=== PATIENT | female | born 1945 | race Asian ===

== ENCOUNTER 2018-05-30 06:24 | Inpatient (IN) | payer MEDICARE, OTHER ==
[2018-05-30] VITALS (16 sets, daily range): BP systolic 100–157; BP diastolic 54–88
[~2018-05-30] VITALS: Ht 152.4 cm; Wt 49.9 kg
--- NOTE | 2018-05-30 06:38 | Emergency Room Report ---
History of Present Illness General Chief Complaint: Abdominal Pain Source: Patient Present Illness HPI 73-year-old female with a history of high cholesterol and 2 remote C-sections presents with right lower quadrant gradual onset, slowly progressive, constant moderate to severe intensity sharp abdominal pain. She denies radiation of pain , denies fevers, vomiting, urinary symptoms, and has not tried any medications for symptoms. She reports it is worse when she presses on it, otherwise has no other alleviating or exacerbating factors. Allergies: Coded Allergies: No Known Allergies (Unverified , 05/30/18) Patient History Past Medical History: see triage record Last Menstrual Period: 2007 Now: No Reviewed Nursing Documentation: PMH: Agreed; PSxH: Agreed Nursing Documentation-PMH Past Medical History: No History, Except For Hx Cardiac Problems: No - high cholesterol Review of Systems All Other Systems: negative except mentioned in HPI Physical Exam Vital Signs Date Time Temp Pulse Resp B/P (MAP) Pulse Ox O2 Delivery O2 Flow Rate FiO2 05/30/18 06:24 98.2 100 16 157/73 98 Room Air Sp02 EP Interpretation: reviewed, normal General Appearance: no apparent distress, alert, non-toxic Head: normocephalic Eyes: bilateral eye normal inspection, bilateral eye PERRL, bilateral eye EOMI ENT: normal ENT inspection, hearing grossly normal, normal pharynx, no angioedema, normal voice, moist mucus membranes Neck: normal inspection, full range of motion, supple, supple/symm/no masses Respiratory: chest non-tender, lungs clear, normal breath sounds, chest symmetrical, palpation of chest normal Cardiovascular #1: normal peripheral pulses, regular rate, rhythm Cardiovascular #2: 2+ radial (R), 2+ radial (L) Gastrointestinal: normal inspection, soft, no mass, no guarding, no rebound, tenderness - + RLQ tenderness to palpation Rectal: deferred Genitourinary: normal inspection, no CVA tenderness Musculoskeletal: back normal, gait/station normal, normal range of motion, non- tender, no calf tenderness Neurologic: alert, responsive, physician support coordinator III-XII nml as tested, motor strength/tone normal, sensory intact, speech normal Psychiatric: judgement/insight normal, memory normal, mood/affect normal Skin: normal color, no rash, warm/dry, normal turgor Lymphatic: no adenopathy Medical Decision Making Diagnostic Impression: Primary Impression: Abdominal pain ER Course -year-old female presents with signs and symptoms consistent with appendicitis , will obtain basic labs, give IV fluids, Zofran, morphine, obtain CT scan to evaluate, patient made n.p.o. Patient with +appy, given IV zosyn, pre-op ekg, cxr ordered, surgeon Dr. Alves consulted, Dr. Santos to admit to [facility] surgery bed. EKG Diagnostic Results EKG Time: 08:53 EP Interpretation: no stemi Rate: normal Rhythm: NSR ST Segments: no acute changes ASA given to the pt in ED: No Rhythm Strip Diag. Results Rhythm Strip Time: 08:50 EP Interpretation: yes Rate: 75 Rhythm: NSR, no PVC's, no ectopy Chest X-Ray Diagnostic Results Chest X-Ray Diagnostic Results : Chest X-Ray Ordered: Yes # of Views/Limited/Complete: 1 View Indication: Other EP Interpretation: Yes Interpretation: no consolidation, no effusion, no pneumothorax, no acute cardiopulmonary disease - abd pain Impression: No acute disease Electronically Signed by: Emilie Agosto MD CT/MRI/US Diagnostic Results CT/MRI/US Diagnostic Results : Imaging Test Ordered: ct abd/pelvis Impression + Acute appendicitis, with possible microperforation, no abscess, no large- volume perforation Last Vital Signs Date Time Temp Pulse Resp B/P (MAP) Pulse Ox O2 Delivery O2 Flow Rate FiO2 05/30/18 06:24 98.2 100 16 157/73 98 Room Air Disposition: ADMITTED INPATIENT Condition: Stable Scripts No Active Prescriptions or Reported Meds EMILIE AGOSTO M.D May 30, 2018 06:38
[2018-05-30] MEDS ORDERED: Isovue-300 100ml vial INJ PRN (06:45)
[2018-05-30] MEDS ORDERED: Morphine Sulfate 4mg/ml Inj (IV USE ONLY) IVP ONE (06:45)
[2018-05-30 07:20] LABS: ANION GAP 9 mmol/L (5-15); BLOOD UREA NITROGEN 11 mg/dL (7-18); CALCIUM 9.2 MG/DL (8.5-10.1); CARBON DIOXIDE 26 MMOL/L (21-32); CHLORIDE 102 MMOL/L (98-107); CREATININE 0.7 MG/DL (0.55-1.30); HEMATOCRIT 41.2 % (37.0-47.0); HEMOGLOBIN 14.4 G/DL (12.0-16.0); MEAN CORPUSCULAR VOLUME 93 FL (80-99); PLATELET COUNT 274 K/UL (150-450); POTASSIUM 3.7 MMOL/L (3.5-5.1); RED BLOOD COUNT 4.42 M/UL (4.20-5.40); RED CELL DISTRIBUTION WIDTH 11.8 % (11.6-14.8); SODIUM 137 MMOL/L (136-145)
[2018-05-30 07:24] LABS: ALANINE AMINOTRANSFERASE 25 U/L (12-78); ALBUMIN 3.3 G/DL (3.4-5.0); ALBUMIN/GLOBULIN RATIO 0.9 (1.0-2.7); ALKALINE PHOSPHATASE 76 U/L (46-116); ASPARTATE AMINO TRANSFERASE 21 U/L (15-37); BILIRUBIN,TOTAL 0.9 MG/DL (0.2-1.0)
[2018-05-30] MEDS ORDERED: Piperacillin/Tazobactam 3.375 GM in NS 110 ML IVPB ONE (07:30)
[2018-05-30 08:04] LABS: APPEARANCE,URINE SLIGHTLY CLOUDY; BILIRUBIN, URINE NEGATIVE (NEGATIVE); GLUCOSE, URINE (UA) NEGATIVE (NEGATIVE); KETONES,URINE 2+ (NEGATIVE); LEUKOCYTE ESTERASE ,URINE 1+ (NEGATIVE); NITRITE,URINE NEGATIVE (NEGATIVE); PH,URINE 6 (4.5-8.0); PROTEIN,URINE 2+ (NEGATIVE); UROBILINOGEN,URINE 4 MG/DL (0.0-1.0)
[2018-05-30 08:07] LABS: COLOR,URINE YELLOW
--- NOTE | 2018-05-30 08:42 | Diagnostic Imaging Report ---
Clinical Indication: Right lower quadrant abdominal pain, gradually onset, slowly progressive, moderate to severe and sharp Technique: No oral contrast utilized, per emergency room physician request IV administration nonionic contrast. Venous phase spiral acquisition obtained through the abdomen and pelvis. Multiplanar reconstructions were generated. Total dose length product 667.33 mGycm. CTDIvol(s) 13.21 mGy. Dose reduction achieved using automated exposure control Comparison: none Findings: The appendix is enlarged, measuring up to 9 mm in diameter. There is an appendicolith at the appendiceal orifice. There is periappendiceal inflammatory change. On the axial slices, there is questionably a tiny focus of extraluminal gas seen on image 71 of series 3. No discrete organized fluid collections are demonstrated. There is colonic diverticulosis. No evidence of diverticulitis. No small bowel distention. No free or loculated intraperitoneal gas or fluid is evident. There is a small sliding-type hiatal hernia. There is equivocal wall thickening of the gastric antrum. The liver demonstrates borderline decreased attenuation in general, with some focal fatty change in the usual location adjacent to the falciform ligament. The gallbladder, bile ducts, pancreas, spleen, adrenals, kidneys are unremarkable. No retroperitoneal mass or adenopathy. No pelvic mass or adenopathy. There are degenerative changes of the lower lumbar spine. The included lung bases demonstrate posterior dependent atelectatic changes. Impression: Positive for acute appendicitis. Questionable tiny extraluminal gas bubble could indicate microperforation. No evidence of periappendiceal abscess Apparent gastric antral wall thickening, could indicate gastritis or peptic ulcer disease. Correlate with clinical findings Equivocal mild fatty liver. More focal fatty deposition adjacent to the falciform ligament Incidental findings noted, including posterior dependent atelectatic changes, hiatal hernia, degenerative spondylosis Findings discussed by phone with Dr. Ware in the emergency room at the time of interpretation The CT scanner at [facility] is accredited by the [employer] and the scans are performed using protocols designed to limit radiation exposure to as low as reasonably achievable to attain images of sufficient resolution adequate for diagnostic evaluation.
[2018-05-30] MEDS: D5 1/2NS w/KCl 20mEq 1,000 ML IV SCH ×4 (09:45→23:07)
[2018-05-30] MEDS ORDERED: Lidocaine 1% MPF 10mg/ml 5ml ONE (10:25)
[2018-05-30] MEDS ORDERED: Midazolam 2mg/2ml Inj ONE (10:25)
[2018-05-30] MEDS ORDERED: fentaNYL 100 mcg/2 mL IV ONE (10:25)
[2018-05-30] MEDS ORDERED: Bupivacaine 0.25% Inj 30ml INJ ONE (10:25)
[2018-05-30] MEDS ORDERED: Bacitracin 50000 Units Vial ONE (10:25)
[2018-05-30] MEDS ORDERED: Propofol 200mg/20ml IV ONE (10:25)
--- NOTE | 2018-05-30 10:29 | Pre-Procedure Note/Attestation ---
Pre-Procedure Note/Attestation Complete Prior to Procedure Planned Procedure: not applicable Procedure Narrative: exploratory laparoscopy, appendectomy possible open appendectomy Indications for Procedure Pre-Operative Diagnosis: acute appendicitis Attestation I attest that I discussed the nature of the procedure; its benefits; risks and complications; and alternatives (and the risks and benefits of such alternatives ), prior to the procedure, with the patient (or the patient's legal retail field representative). I attest that, if there was a reasonable possibility of needing a blood transfusion, the patient (or the patient's legal retail field representative) was given the [facility] standardized written summary, pursuant to the Xavier Jim Blood Safety Act ([place] Health and Safety Code # 1645, as amended). I attest that I re-evaluated the patient just prior to the surgery and that there has been no change in the patient's H&P, except as documented below: Ana Maria Alves MD May 30, 2018 10:29
[2018-05-30] MEDS ORDERED: NS Irrig 1000ml ONE (10:30)
[2018-05-30] MEDS ORDERED: Sterile Water Irrig 1000ml IRRIG ONE (10:30)
--- NOTE | 2018-05-30 10:30 | Consultation ---
DATE OF CONSULTATION: 05/30/2018 PREOPERATIVE CONSULTATION CONSULTING PHYSICIAN: Ana Maria Alves M.D. REQUESTING PHYSICIAN: ER physician. REASON FOR CONSULTATION: Abdominal pain. HISTORY OF PRESENT ILLNESS: This is a 73-year-old [place] female, who presented to emergency room complaining of abdominal pain for three days. She stated the pain has been located at right lower quadrant and it has gradually increased. She stated that in the beginning she had vomiting, but with taking some medicine the vomiting has resolved. She is usually constipated and she takes laxative. She denies any fever, cough, dysuria, or frequency. She denies any previous history of similar pain. PAST MEDICAL HISTORY: She denies allergies, asthma, diabetes, cardiac and renal diseases. Apparently, she has a history of hypertension. PAST SURGICAL HISTORY: Include x2. MEDICATIONS: Sleeping pill. SOCIAL HISTORY: The patient is a 73-year-old [place] female, who is and mother of two children. She is unemployed. Denies smoking, but drinks occasionally. REVIEW OF SYSTEMS: Noncontributory. PHYSICAL EXAMINATION: GENERAL: The patient appeared to be a well-developed, well-nourished, 73-year-old [place] female, lying on the bed, complaining of abdominal pain. HEENT: Head is normocephalic and atraumatic. Eyes, pupils are equal, round, and reactive to light. Mouth is clear. NECK: There is no palpable thyromegaly or adenopathy. CHEST: Clear to auscultation and percussion. HEART: There is no gallop or murmur. S1 and S2 are within normal limits. ABDOMEN: Soft and flat. She has a scar of the midline incision below the umbilicus. She has tenderness and rebound tenderness. There is voluntary guarding at right lower quadrant. There is no palpable organomegaly and bowel sounds are audible. GENITAL: Deferred. EXTREMITIES: Within normal limits. LABORATORY AND DIAGNOSTIC DATA: CBC has shown a WBC of 15,000 with a left shift. Chemistry is within normal limits. CAT scan of the abdomen has been interpreted as acute appendicitis. ASSESSMENT: Acute appendicitis. PLAN: After rehydration, the patient will undergo exploratory laparoscopy appendectomy, possible open appendectomy. The risks and benefits have been explained to her. She understood and granted consent. Ana Maria Alves M.D. DR: DARI JOB#: [id number] CC:
--- NOTE | 2018-05-30 10:32 | Anethesia Preoperative Eval ---
Anesthesia Pre-op PMH/ROS General Date of Evaluation: May 30, 2018 Time of Evaluation: 10:30 Anesthesiologist: Cami Urbina CRNA ASA Score: ASA 2 Mallampati Score Class I : Soft palate, uvula, fauces, pillars visible Class II: Soft palate, uvula, fauces visible Class III: Soft palate, base of uvula visible Class IV: Only hard plate visible Mallampati Classification: Class II Surgeon: Long Diagnosis: Acute appendicitis Surgical Procedure: Laparoscopic appedectomy Anesthesia History: none Family History: no anesthesia problems Allergies: Coded Allergies: No Known Allergies (Unverified , 05/30/18) Medications: see eMAR Patient NPO?: Yes NPO Date: May 30, 2018 NPO Time: 00:00 Past Medical History Cardiovascular: Reports: HTN, other - Hypercholesterolemia; Denies: CAD, NV, valve dz, arrhythmia Pulmonary: Denies: asthma, COPD, JENN, other Gastrointestinal/Genitourinary: Reports: other - ED 05/30/18 abdominal pain x 2 wks, (+) acute appendicitis; Denies: GERD, CRI, ESRD Neurologic/Psychiatric: Denies: dementia, CVA, depression/anxiety, TIA, other Endocrine: Denies: DM, hypothyroidism, steroids, other HEENT: Denies: cataract (L), cataract (R), glaucoma, ATKA (L), ATKA (R), other Hematology/Immune: Denies: anemia, DVT, bleeding disorder, other PMH Narrative: as noted above PSxH Narrative: c/s x 2 Anesthesia Pre-op Phys. Exam Physician Exam Last Vital Signs Date Time Temp Pulse Resp B/P (MAP) Pulse Ox O2 Delivery O2 Flow Rate FiO2 05/30/18 10:20 Room Air 05/30/18 09:11 98.3 73 16 132/60 97 Constitutional: NAD Neurologic: other - alert & oriented Cardiovascular: RRR Respiratory: CTA Gastrointestinal: S/NT/ND Airway Exam Mallampati Score: Class II MO: full Neck: FROM TMD: > 3 FB ROM: full Teeth: intact Dentures: no upper, no lower Anesthesia Pre-op A/P Labs Hematology Test 05/30/18 06:45 White Blood Count 15.0 K/UL (4.8-10.8) H Red Blood Count 4.42 M/UL (4.20-5.40) Hemoglobin 14.4 G/DL (12.0-16.0) Hematocrit 41.2 % (37.0-47.0) Mean Corpuscular Volume 93 FL (80-99) Mean Corpuscular Hemoglobin 32.5 PG (27.0-31.0) H Mean Corpuscular Hemoglobin Concent 34.9 G/DL (32.0-36.0) Red Cell Distribution Width 11.8 % (11.6-14.8) Platelet Count 274 K/UL (150-450) Mean Platelet Volume 6.2 FL (6.5-10.1) L Neutrophils (%) (Auto) % (45.0-75.0) Lymphocytes (%) (Auto) % (20.0-45.0) Monocytes (%) (Auto) % (1.0-10.0) Eosinophils (%) (Auto) % (0.0-3.0) Basophils (%) (Auto) % (0.0-2.0) Differential Total Cells Counted 100 Neutrophils % (Manual) 85 % (45-75) H Lymphocytes % (Manual) 12 % (20-45) L Monocytes % (Manual) 3 % (1-10) Eosinophils % (Manual) 0 % (0-3) Basophils % (Manual) 0 % (0-2) Band Neutrophils 0 % (0-8) Platelet Estimate Adequate Platelet Morphology Normal Red Blood Cell Morphology Normal Coagulation Test 05/30/18 06:45 Prothrombin Time 10.1 SEC (9.30-11.50) Prothromb Time International Ratio 1.0 (0.9-1.1) Activated Partial Thromboplast Time 30 SEC (23-33) Chemistry Test 05/30/18 06:45 Sodium Level 137 MMOL/L (136-145) Potassium Level 3.7 MMOL/L (3.5-5.1) Chloride Level 102 MMOL/L (98-107) Carbon Dioxide Level 26 MMOL/L (21-32) Anion Gap 9 mmol/L (5-15) Blood Urea Nitrogen 11 mg/dL (7-18) Creatinine 0.7 MG/DL (0.55-1.30) Estimat Glomerular Filtration Rate mL/min (>60) Glucose Level 113 MG/DL (74-106) H Calcium Level 9.2 MG/DL (8.5-10.1) Total Bilirubin 0.9 MG/DL (0.2-1.0) Aspartate Amino Transf (AST/SGOT) 21 U/L (15-37) Alanine Aminotransferase (ALT/SGPT) 25 U/L (12-78) Alkaline Phosphatase 76 U/L (46-116) Total Protein 7.1 G/DL (6.4-8.2) Albumin 3.3 G/DL (3.4-5.0) L Globulin 3.8 g/dL Albumin/Globulin Ratio 0.9 (1.0-2.7) L Lipase 125 U/L (73-393) Studies Pre-op Studies: EKG - NSR Risk Assessment & Plan Assessment: ASA 2, ok to proceed Plan: GETA Status Change Before Surgery: No Pre-Antibiotics Drug: Cami Moran CRNA May 30, 2018 10:32
[2018-05-30] MEDS ORDERED: NS Irrig 1000ml IRRIG ONE (10:39)
[2018-05-30] MEDS ORDERED: Ketorolac 30mg Inj ONE (11:08)
[2018-05-30] MEDS ORDERED: Morphine Sulfate 10mg/ml Inj ONE (11:08)
[2018-05-30] MEDS ORDERED: Metoclopramide 10mg/2ml Inj ONE (11:08)
--- NOTE | 2018-05-30 11:24 | Diagnostic Imaging Report ---
Indication: Shortness of breath Technique: One view of the chest Comparison: none Findings: The heart size is normal. The lungs and pleural spaces are clear. The aorta is tortuous and calcified. Impression: No acute process
[2018-05-30] MEDS ORDERED: Hydromorphone 0.5mg/0.5ml inj IVP PRN ×2 (11:30→12:00)
[2018-05-30] MEDS ORDERED: D5 1/2NS w/KCl 20mEq 1,000 ML IV SCH (11:55)
--- NOTE | 2018-05-30 11:55 | Brief Operative Note ---
Immediate Post Operative Note Operative Note Pre-op Diagnosis: acute appendicitis Procedure: Attempted lap appy, lysis of adhesions and open appedectomy Post-op Diagnosis: same as pre-op Findings: consistent w/pre-op dx studies Surgeon: MD Annette Adult Probation Officer: none Anesthesiologist: ramon Stewart CRNA Anesthesia: general Specimen: yes Complications: none Condition: stable Fluids: per molded rubber goods cutter Estimated Blood Loss: volume - 10 ml Drains: none Implant(s) used?: No Ana Maria Alves MD May 30, 2018 11:55
[2018-05-30] MEDS ORDERED: HYDROmorphone 1mg/ml Carpuject IVP PRN (12:00)
[2018-05-30] MEDS ORDERED: Acetaminophen 650 MG SUPP RECTAL PRN (12:00)
[2018-05-30] MEDS ORDERED: Metoclopramide 10mg/2ml Inj IVP PRN (12:00)
[2018-05-30] MEDS ORDERED: Morphine Sulfate 4mg/ml Inj (IV USE ONLY) IVP PRN (12:15)
[2018-05-30] MEDS ORDERED: Morphine Sulfate 2mg/ml Inj(IV/IM USE ONLY) IVP PRN (12:15)
--- NOTE | 2018-05-30 12:22 | Immediate Post-Op Evaluation ---
Immediate Post-Op Evalulation Immediate Post-Op Evalulation Procedure: Attempted laparoscopic appendectomy converted to appendectomy Date of Evaluation: May 30, 2018 Time of Evaluation: 12:07 IV Fluids: LR 800 ml Estimated Blood Loss: 30 ml Blood Pressure Systolic: 133 Blood Pressure Diastolic: 59 Pulse Rate: 80 Respiratory Rate: 10 O2 Sat by Pulse Oximetry: 100 Temperature (Fahrenheit): 98.1 Pain Score (1-10): 0 Nausea: No Vomiting: No Complications none Patient Status: reacts, patent, extubated Hydration Status: adequate Drug: Cefazolin 1 gm IV Given Within 1 Hr of Incision: Yes Time Given: 10:55 Cami Urbina CRNA May 30, 2018 12:22
[2018-05-30] MEDS ORDERED: Glycopyrrolate 0.2mg/ml 1ml Vial ONE (12:32)
[2018-05-30] MEDS ORDERED: Neostigmine 1mg/ml 10ml Inj ONE (12:32)
[2018-05-30] MEDS: Piperacillin/Tazobactam 3.375 GM in NS 110 ML IVPB SCH ×2 (13:57→21:41)
[2018-05-30] MEDS: Pantoprazole Inj IVP SCH (13:57)
[2018-05-30] MEDS ORDERED: Piperacillin/Tazobactam 3.375 GM in NS 110 ML IVPB SCH (14:00)
--- NOTE | 2018-05-30 15:05 | Consultation ---
Consult Note Assessment/Plan DICT # [id number] Eben Satnos MD May 30, 2018 15:05
--- NOTE | 2018-05-30 15:21 | History & Physical ---
History and Physical History & Physicial HP dictated # [id number] Manuel Gallagher MD May 30, 2018 15:21
--- NOTE | 2018-05-30 19:15 | Consultation ---
DATE OF CONSULTATION: 05/30/2018 PULMONARY CONSULTATION CONSULTING PHYSICIAN: Eben Santos M.D. REFERRING PHYSICIAN: Manuel Gallagher M.D. REASON FOR CONSULTATION: Postoperative hypoxemia. HISTORY OF PRESENT ILLNESS: The patient is a 73-year-old female with history of hyperlipidemia, who presented with right lower quadrant pain secondary to appendicitis. She is now status post laparoscopic appendectomy by Dr. Alves. Postoperatively, she was hypoxemic. She is still lethargic and coming out of anesthesia. No cough or congestion noted. Per , no antecedent history of lung disease, asthma, or tobacco use. PAST MEDICAL HISTORY: Hyperlipidemia. PAST SURGICAL HISTORY: x2 and now appendectomy. ALLERGIES: No known drug allergies. MEDICATIONS: Prior to admission, medications none. Current medications noted. SOCIAL HISTORY: No tobacco, alcohol, or drug use. . Supportive family. FAMILY HISTORY: Noncontributory. REVIEW OF SYSTEMS: Unobtainable. PHYSICAL EXAMINATION: VITAL SIGNS: Temperature 98, pulse 84, blood pressure 130/60, respiratory rate 17, saturating well 3 liters. GENERAL: Lethargic, barely arousable. HEENT: Normocephalic and atraumatic. Oropharynx is clear with moist mucous membranes. NECK: Supple without lymphadenopathy. CHEST: Clear. HEART: Regular. ABDOMEN: Wounds are dressed. No bowel sounds are appreciated. Mild diffuse tenderness. EXTREMITIES: No cyanosis, clubbing or edema. ANCILLARY DATA: White count 15, hemoglobin 14.4, and platelet count 274. INR 1. Sodium 137, potassium 3.7, chloride 102, bicarbonate 26, BUN 11, creatinine 0.7, glucose 113, calcium 9.2. Total bilirubin 0.9, AST 21, ALT 25, alkaline phosphatase 76, total bilirubin 7.1, albumin 3.3, globulin 3.8. Urinalysis, 2+ protein, 2+ ketones, 4+ urobilinogen, 1+ leukocyte esterase, and moderate mucus. IMAGING: Preoperative chest x-ray was essentially within normal limits. CT of the abdomen and pelvis done, chest cuts reviewed by myself. There is evidence of acute appendicitis, questionable tiny extraluminal gas bubble, concern for microperforation, no periappendiceal abscess , gastric antral wall thickening, mild fatty liver, some posterior atelectasis, hiatal hernia, degenerative changes. ASSESSMENT: The patient is a 73-year-old female, nonsmoker with no history of lung disease, presenting with acute appendicitis, now postop day 0, status post acute appendicitis with mild hypoxemia. I suspect the etiology of her hypoxemia secondary to atelectasis and resolving anesthesia with subsequent hypoventilation. PROBLEM LIST: 1. Mild postoperative hypoxemia. 2. Acute appendicitis status post laparoscopic appendectomy for 05/30/2018. 3. Hyperlipidemia. TREATMENT PLAN: 1. ABG. 2. Titrate down FiO2 to keep saturations greater than 92%. 3. Incentive spirometer. 4. Monitor for signs of respiratory infection. 5. Continue antibiotics. 6. The patient is on Lovenox for DVT prophylaxis. 7. Await for the patient to come out completely from anesthesia before advancing diet. 8. Case discussed with at bedside. Dr. Gallagher, thank you for allowing me to assist in the care of your patient. Eben Santos M.D. DR: Araceli JOB#: [id number] CC:
--- NOTE | 2018-05-30 20:00 | Operative Note - Dictated ---
DATE OF OPERATION: 05/30/2018 PREOPERATIVE DIAGNOSIS: Acute appendicitis. POSTOPERATIVE DIAGNOSIS: Acute appendicitis. OPERATION: 1. Attempted laparoscopic appendectomy. 2. Lysis of the adhesion. 3. Open appendectomy. COMPLICATIONS: None. SURGEON: Ana Maria Alves M.D. DIGITAL CONTENT SPECIALIST: None. ANESTHESIA: General with endotracheal tube. CAR RENTAL AGENCY MANAGER: Cami Urbina CRNA. INDICATION: This is a 73-year-old ori[place] female, who presented to emergency room complaining of abdominal pain for 4 days. She stated the pain was located at the right lower quadrant and initially it was associated with nausea and vomiting. She has been constipated. She denied any fever or chills. She denied any cough or dysuria. Physical examination showed severe tenderness, rebound tenderness, and voluntary guarding throughout the lower quadrant. CBC showed a WBC of 15,000 with a left shift. CAT scan of the abdomen was interpreted as acute appendicitis. DESCRIPTION OF PROCEDURE: The patient was placed supine on the operating table and after general anesthesia with the endotracheal tube, the abdomen was properly prepped and draped. Initially, a small incision was given above the umbilicus through which a Veress needle was introduced into the intraperitoneal cavity. This cavity was insufflated up to 15 mmHg and then the Veress needle was removed and a 5 mm trocar was placed in the intraperitoneal cavity through the incision above the umbilicus. The laparoscope and camera were introduced into the intraperitoneal cavity. It was noticed that the patient had very extensive adhesions of the omentum at the lower abdomen. It should be noted that the patient has had 2 C-sections before and she had the scar of the midline incision below the umbilicus. We managed to place the 5 mm trocar at the suprapubic area and a 12 mm trocar at the left lower quadrant, but with the presence of adhesions. The maneuvering of the adhesions was very difficult, so initially the adhesion of the omentum to the anterior abdominal wall was released with the help of the Bovie and access was obtained to the right lower quadrant. The cecum was identified. Exploration was performed, which showed severe inflammation in the area. Mild blunt dissection was performed and tubular structure was identified, which seemed like an appendix. This structure did not have any mesoappendix and it was only the tubular structure. Anyway, this structure was ligated and dissected with the help of the REYES stapler. It was removed from the intraperitoneal cavity. It was notified to be very short and I was not sure if that was really the appendix, so further exploration was performed. I have noticed a large area of induration and inflammation below and lateral to the cecum. This area was dissected, but we were unable to identify any structures as I was not sure about the anatomy, a decision was made to perform an open appendectomy. So, the trocars were removed and a transverse right lower quadrant incision was given and was carried sharply through the subcutaneous tissue and the Gm fascia. The aponeurosis of the external oblique was opened among the fibers and the muscles were streaked. The peritoneum was incised. The intraperitoneal cavity was entered. The cecum was identified and the cecum was likely dissected and was delivered in the wound. Exploration was performed. It showed that the structure that we have removed as an appendix was actually the appendix and there was a stump left, which was smaller than 1 cm or less, and so this one was transligated with 0 Vicryl and the stump was resected and removed. Further exploration was performed and the inflamed tissue was identified on the lateral to the cecum. That is below the cecum. This was gradually dissected and finally removed. I was unable to find any other structure like appendix, so the area was irrigated with antibiotic solution and then the incision was approximated with running suture of #0 Vicryl for peritoneum and posterior fascia. A few interrupted sutures of 0 Vicryl for the muscle and then the aponeurosis of the external oblique was approximated with a running suture of 0 Vicryl. The skin incisions were approximated with skin eduar. The incisions were infiltrated with total of 10 mL of Marcaine 0.25%. The patient tolerated the procedure very well and was transferred to recovery in stable condition and extubated. The sponge and needle counts correct. Estimated blood loss 10 mL. Condition of the patient at the end of procedure is stable. Ana Maria Alves M.D. DR: OSCAR JOB#: [id number] CC:
--- NOTE | 2018-05-30 20:15 | History and Physical Report ---
DATE OF ADMISSION: 05/30/2018 CHIEF COMPLAINT: Abdominal pain. HISTORY OF PRESENT ILLNESS: This is a 73-year-old Persian female, who got recently a flu for the past couple of weeks. Yesterday, she started having right lower quadrant pain, which was increasing with initial vomiting. The patient also had no appetite. The patient was evaluated in the emergency room and was diagnosed with acute appendicitis. She was taken to surgery by Dr. Alves today and she just came back from surgery. The patient was also somewhat hypoxic and the nurse was telling me she was on 5 L O2 and her O2 saturation was low 90s. The patient did not have any previous history of lung disease. PAST MEDICAL HISTORY: Reports history of hypertension. No history of diabetes, cardiac or renal disease. The patient had C-sections x2. ALLERGIES: No known drug allergies. REVIEW OF SYSTEMS: Noncontributory. PHYSICAL EXAMINATION: GENERAL: The patient is an elderly female, in no acute distress. VITAL SIGNS: Blood pressure is 130/60, pulse 84, temperature 98, respiratory rate 17. HEENT: [place] conjunctivae. Anicteric sclerae. NECK: Supple. LUNGS: Clear to auscultation. HEART: S1, S2 without murmurs or rubs. ABDOMEN: Soft. Appears to be nontender with some surgical strips over the holes. EXTREMITIES: No cyanosis or edema. LABORATORY FINDINGS: The CBC shows a WBC of 15,000 hematocrit 41.2, hemoglobin is 14.4, platelets 274,000. The chemistry panel shows serum sodium of 137, potassium 3.7, chloride is 102, CO2 26, BUN 7, creatinine 0.7. Albumin is 3.3. UA is positive for 2+ protein. ASSESSMENT: This is a 73-year-old Persian female who was admitted with abdominal pain, attacks of acute appendicitis. She is somewhat hypoxic at this point, which may be postop atelectasis. PLAN: The patient will be monitored. She will be on pain medications p.r.n. She was seen by Dr. Santos in pulmonary consultation. Case was discussed with RN. Adjustments will be made in the patient's regimen. Manuel Gallagher M.D. DR: CARLOS JOB#: [id number] CC:
[2018-05-31] VITALS: BP 109/52
[2018-05-31 04:00] VITALS: BP 117/58
[2018-05-31] MEDS: D5 1/2NS w/KCl 20mEq 1,000 ML IV SCH ×4 (05:36→18:34)
[2018-05-31] MEDS: Piperacillin/Tazobactam 3.375 GM in NS 110 ML IVPB SCH ×3 (05:38→22:26)
[2018-05-31 06:59] LABS: BASOPHILS % (AUTO) 0.6 % (0.0-2.0); EOSINOPHILS % (AUTO) 0.1 % (0.0-3.0); HEMATOCRIT 35.6 % (37.0-47.0); HEMOGLOBIN 12.1 G/DL (12.0-16.0); LYMPHOCYTES % (AUTO) 9.4 % (20.0-45.0); MEAN CORPUSCULAR VOLUME 95 FL (80-99); MONOCYTES % (AUTO) 5.7 % (1.0-10.0); NEUTROPHILS % (AUTO) 84.2 % (45.0-75.0); PLATELET COUNT 226 K/UL (150-450); RED BLOOD COUNT 3.73 M/UL (4.20-5.40); RED CELL DISTRIBUTION WIDTH 11.9 % (11.6-14.8); WHITE BLOOD COUNT 10.4 K/UL (4.8-10.8)
[2018-05-31 07:04] LABS: ALANINE AMINOTRANSFERASE 18 U/L (12-78); ALBUMIN 2.5 G/DL (3.4-5.0); ALBUMIN/GLOBULIN RATIO 0.7 (1.0-2.7); ALKALINE PHOSPHATASE 65 U/L (46-116); ANION GAP 9 mmol/L (5-15); ASPARTATE AMINO TRANSFERASE 13 U/L (15-37); BILIRUBIN,TOTAL 0.9 MG/DL (0.2-1.0); BLOOD UREA NITROGEN 13 mg/dL (7-18); CALCIUM 8.4 MG/DL (8.5-10.1); CARBON DIOXIDE 25 MMOL/L (21-32); CHLORIDE 104 MMOL/L (98-107); CHOLESTEROL 112 MG/DL (< 200); CREATININE 0.7 MG/DL (0.55-1.30); HDL CHOLESTEROL 49 MG/DL (40-60); POTASSIUM 3.7 MMOL/L (3.5-5.1); SODIUM 138 MMOL/L (136-145); TRIGLYCERIDES 73 MG/DL (30-150)
[2018-05-31 08:00] VITALS: BP 107/52
[2018-05-31] MEDS: Pantoprazole Inj IVP SCH (08:30)
[2018-05-31] MEDS: Enoxaparin 40mg Inj SUBQ SCH (08:39)
[2018-05-31] MEDS ORDERED: Tubing IV Secondary IV ONE (09:59)
--- NOTE | 2018-05-31 11:49 | General Surgery Progress Note ---
General Surgery-Progress Note Subjective Procedure Performed Attempted lap appy, lysis of adhesions and open appedectomy Objective Last 24 Hour Vital Signs Date Time Temp Pulse Resp B/P (MAP) Pulse Ox O2 Delivery O2 Flow Rate FiO2 05/31/18 09:01 98.3 05/31/18 09:00 Nasal Cannula 2.0 05/31/18 08:05 Nasal Cannula 2.0 28 05/31/18 08:05 94 Nasal Cannula 2.0 28 05/31/18 08:00 100.8 86 18 107/52 (70) 94 05/31/18 04:00 99.3 88 17 117/58 (77) 93 05/31/18 00:00 99.2 82 18 109/52 (71) 95 05/30/18 21:00 Nasal Cannula 2.0 05/30/18 20:00 99.7 84 17 118/60 (79) 96 05/30/18 16:00 98.0 76 18 126/76 (93) 98 05/30/18 15:00 98.1 75 18 100/55 (70) 96 05/30/18 14:50 Nasal Cannula 3.0 32 05/30/18 14:50 97 Nasal Cannula 3.0 32 05/30/18 14:30 98.0 80 19 106/54 (71) 95 05/30/18 14:00 97.9 84 19 111/55 (73) 93 05/30/18 13:30 97.9 81 18 107/55 (72) 90 05/30/18 13:15 98.0 84 17 130/60 99 Nasal Cannula 2.0 05/30/18 13:00 86 19 130/67 100 Nasal Cannula 2.0 05/30/18 12:45 88 18 130/66 99 Nasal Cannula 2.0 05/30/18 12:30 90 17 130/64 100 Simple Mask 6.0 05/30/18 12:22 80 10 100 05/30/18 12:17 88 16 130/58 100 Simple Mask 6.0 05/30/18 12:12 81 14 129/61 100 Simple Mask 6.0 05/30/18 12:07 98.1 80 10 133/59 100 Simple Mask 6.0 I&O Intake and Output 05/30/18 05/31/18 18:59 06:59 Intake Total 2620.0 ml 937.5 ml Balance 2620.0 ml 937.5 ml Intake IV Total 2620.0 ml 937.5 ml # Voids 1 3 Dressing: dry Respiratory: clear Abdomen: soft, flat, tenderness, decreased bowel sounds Extremities: no tenderness Laboratory Tests Test 05/31/18 04:40 White Blood Count 10.4 K/UL (4.8-10.8) Red Blood Count 3.73 M/UL (4.20-5.40) L Hemoglobin 12.1 G/DL (12.0-16.0) Hematocrit 35.6 % (37.0-47.0) L Mean Corpuscular Volume 95 FL (80-99) Mean Corpuscular Hemoglobin 32.4 PG (27.0-31.0) H Mean Corpuscular Hemoglobin Concent 34.0 G/DL (32.0-36.0) Red Cell Distribution Width 11.9 % (11.6-14.8) Platelet Count 226 K/UL (150-450) Mean Platelet Volume 6.0 FL (6.5-10.1) L Neutrophils (%) (Auto) 84.2 % (45.0-75.0) H Lymphocytes (%) (Auto) 9.4 % (20.0-45.0) L Monocytes (%) (Auto) 5.7 % (1.0-10.0) Eosinophils (%) (Auto) 0.1 % (0.0-3.0) Basophils (%) (Auto) 0.6 % (0.0-2.0) Sodium Level 138 MMOL/L (136-145) Potassium Level 3.7 MMOL/L (3.5-5.1) Chloride Level 104 MMOL/L (98-107) Carbon Dioxide Level 25 MMOL/L (21-32) Anion Gap 9 mmol/L (5-15) Blood Urea Nitrogen 13 mg/dL (7-18) Creatinine 0.7 MG/DL (0.55-1.30) Estimat Glomerular Filtration Rate mL/min (>60) Glucose Level 147 MG/DL (74-106) H Hemoglobin A1c 5.9 % (4.3-6.0) Calcium Level 8.4 MG/DL (8.5-10.1) L Total Bilirubin 0.9 MG/DL (0.2-1.0) Aspartate Amino Transf (AST/SGOT) 13 U/L (15-37) L Alanine Aminotransferase (ALT/SGPT) 18 U/L (12-78) Alkaline Phosphatase 65 U/L (46-116) Total Protein 5.9 G/DL (6.4-8.2) L Albumin 2.5 G/DL (3.4-5.0) L Globulin 3.4 g/dL Albumin/Globulin Ratio 0.7 (1.0-2.7) L Triglycerides Level 73 MG/DL (30-150) Cholesterol Level 112 MG/DL (< 200) LDL Cholesterol 49 mg/dL (<100) HDL Cholesterol 49 MG/DL (40-60) Cholesterol/HDL Ratio 2.3 (3.3-4.4) L Assessment Additional Comments S/P open appy Plan Additional Comments Continue as before Ana Maria Alves MD May 31, 2018 11:49
[2018-05-31 12:00] VITALS: BP 116/52
[2018-05-31 15:56] VITALS: BP 116/56
--- NOTE | 2018-05-31 16:10 | General Progress Note ---
Assessment/Plan Problem List: (1) Acute appendicitis Assessment & Plan: Status post appendectomy ICD Codes: K35.80 - Unspecified acute appendicitis SNOMED: 79732982 (2) Abdominal pain ICD Codes: R10.9 - Unspecified abdominal pain SNOMED: 32661871 Assessment/Plan Continue IV fluid PRN pain medications IV antibiotics Advance diet per surgery Discussed with patient and RN Subjective Allergies: Coded Allergies: No Known Allergies (Unverified , 05/30/18) Subjective Patient feels better No abdominal pain Objective Last 24 Hour Vital Signs Date Time Temp Pulse Resp B/P (MAP) Pulse Ox O2 Delivery O2 Flow Rate FiO2 05/31/18 15:56 98.4 78 18 116/56 (76) 95 05/31/18 12:00 98.3 74 18 116/52 (73) 94 05/31/18 09:01 98.3 05/31/18 09:00 Nasal Cannula 2.0 05/31/18 08:05 Nasal Cannula 2.0 28 05/31/18 08:05 94 Nasal Cannula 2.0 28 05/31/18 08:00 100.8 86 18 107/52 (70) 94 05/31/18 04:00 99.3 88 17 117/58 (77) 93 05/31/18 00:00 99.2 82 18 109/52 (71) 95 05/30/18 21:00 Nasal Cannula 2.0 05/30/18 20:00 99.7 84 17 118/60 (79) 96 Intake and Output 05/30/18 05/31/18 18:59 06:59 Intake Total 2620.0 ml 937.5 ml Balance 2620.0 ml 937.5 ml Intake IV Total 2620.0 ml 937.5 ml # Voids 1 3 Laboratory Tests 05/31/18 04:40: White Blood Count 10.4, Red Blood Count 3.73L, Hemoglobin 12.1, Hematocrit 35.6L , Mean Corpuscular Volume 95, Mean Corpuscular Hemoglobin 32.4H, Mean Corpuscular Hemoglobin Concent 34.0, Red Cell Distribution Width 11.9, Platelet Count 226, Mean Platelet Volume 6.0L, Neutrophils (%) (Auto) 84.2H, Lymphocytes (%) (Auto) 9.4L, Monocytes (%) (Auto) 5.7, Eosinophils (%) (Auto) 0.1, Basophils (%) (Auto) 0.6, Sodium Level 138, Potassium Level 3.7, Chloride Level 104, Carbon Dioxide Level 25, Anion Gap 9, Blood Urea Nitrogen 13, Creatinine 0.7, Estimat Glomerular Filtration Rate , Glucose Level 147H, Hemoglobin A1c 5.9 , Calcium Level 8.4L, Total Bilirubin 0.9, Aspartate Amino Transf (AST/SGOT) 13L , Alanine Aminotransferase (ALT/SGPT) 18, Alkaline Phosphatase 65, Total Protein 5.9L, Albumin 2.5L, Globulin 3.4, Albumin/Globulin Ratio 0.7L, Triglycerides Level 73, Cholesterol Level 112, LDL Cholesterol 49, HDL Cholesterol 49, Cholesterol/HDL Ratio 2.3L Height (Feet): 5 Height (Inches): 0.00 Weight (Pounds): 110 Cardiovascular: normal rate Respiratory/Chest: lungs clear Abdomen: soft Manuel Gallagher MD May 31, 2018 16:10
--- NOTE | 2018-05-31 16:46 | Pulmonology Progress Note ---
Assessment/Plan Assessment/Plan Pulmonary Progress Note: HISTORY OF PRESENT ILLNESS: The patient is a 73-year-old female with history of hyperlipidemia, who presented with right lower quadrant pain secondary to appendicitis. She is now status post laparoscopic appendectomy by Dr. Alves. Postoperatively, she was hypoxemic. She is still lethargic and coming out of anesthesia. No cough or congestion noted. Per , no antecedent history of lung disease, asthma, or tobacco use. PAST MEDICAL HISTORY: Hyperlipidemia. PAST SURGICAL HISTORY: x2 and now appendectomy. ALLERGIES: No known drug allergies. MEDICATIONS: Prior to admission, medications none. Current medications noted. SOCIAL HISTORY: No tobacco, alcohol, or drug use. . Supportive family. FAMILY HISTORY: Noncontributory. REVIEW OF SYSTEMS: Unobtainable. PHYSICAL EXAMINATION: VITAL SIGNS NOTED GENERAL: Awake HEENT: Normocephalic and atraumatic. Oropharynx is clear with moist mucous membranes. NECK: Supple without lymphadenopathy. CHEST: Clear. HEART: Regular. ABDOMEN: Wounds are dressed. No bowel sounds are appreciated. Mild diffuse tenderness. EXTREMITIES: No cyanosis, clubbing or edema. ANCILLARY DATA: White count 15, hemoglobin 14.4, and platelet count 274. INR 1. Sodium 137, potassium 3.7, chloride 102, bicarbonate 26, BUN 11, creatinine 0.7, glucose 113, calcium 9.2. Total bilirubin 0.9, AST 21, ALT 25, alkaline phosphatase 76, total bilirubin 7.1, albumin 3.3, globulin 3.8. Urinalysis, 2+ protein, 2+ ketones, 4+ urobilinogen, 1+ leukocyte esterase, and moderate mucus. IMAGING: Preoperative chest x-ray was essentially within normal limits. CT of the abdomen and pelvis done, chest cuts reviewed by myself. There is evidence of acute appendicitis, questionable tiny extraluminal gas bubble, concern for microperforation, no periappendiceal abscess , gastric antral wall thickening, mild fatty liver, some posterior atelectasis, hiatal hernia, degenerative changes. ASSESSMENT: The patient is a 73-year-old female, nonsmoker with no history of lung disease, presenting with acute appendicitis, now postop day 0, status post acute appendicitis with mild hypoxemia. I suspect the etiology of her hypoxemia secondary to atelectasis and resolving anesthesia with subsequent hypoventilation. PROBLEM LIST: 1. Mild postoperative hypoxemia. 2. Acute appendicitis status post laparoscopic appendectomy for 05/30/2018. 3. Hyperlipidemia. TREATMENT PLAN: 1. Titrate down FiO2 to keep saturations greater than 92%. 2. Incentive spirometer. 3. Monitor for signs of respiratory infection. 4. Continue antibiotics. 5. The patient is on Lovenox for DVT prophylaxis. 6. Advance diet as tolerated Subjective ROS Limited/Unobtainable: No Allergies: Coded Allergies: No Known Allergies (Unverified , 05/30/18) Objective Last 24 Hour Vital Signs Date Time Temp Pulse Resp B/P (MAP) Pulse Ox O2 Delivery O2 Flow Rate FiO2 05/31/18 15:56 98.4 78 18 116/56 (76) 95 05/31/18 12:00 98.3 74 18 116/52 (73) 94 05/31/18 09:01 98.3 05/31/18 09:00 Nasal Cannula 2.0 05/31/18 08:05 Nasal Cannula 2.0 28 05/31/18 08:05 94 Nasal Cannula 2.0 28 05/31/18 08:00 100.8 86 18 107/52 (70) 94 05/31/18 04:00 99.3 88 17 117/58 (77) 93 05/31/18 00:00 99.2 82 18 109/52 (71) 95 05/30/18 21:00 Nasal Cannula 2.0 05/30/18 20:00 99.7 84 17 118/60 (79) 96 Intake and Output 05/30/18 05/31/18 18:59 06:59 Intake Total 2620.0 ml 937.5 ml Balance 2620.0 ml 937.5 ml Intake IV Total 2620.0 ml 937.5 ml # Voids 1 3 Laboratory Tests 05/31/18 04:40: White Blood Count 10.4, Red Blood Count 3.73L, Hemoglobin 12.1, Hematocrit 35.6L , Mean Corpuscular Volume 95, Mean Corpuscular Hemoglobin 32.4H, Mean Corpuscular Hemoglobin Concent 34.0, Red Cell Distribution Width 11.9, Platelet Count 226, Mean Platelet Volume 6.0L, Neutrophils (%) (Auto) 84.2H, Lymphocytes (%) (Auto) 9.4L, Monocytes (%) (Auto) 5.7, Eosinophils (%) (Auto) 0.1, Basophils (%) (Auto) 0.6, Sodium Level 138, Potassium Level 3.7, Chloride Level 104, Carbon Dioxide Level 25, Anion Gap 9, Blood Urea Nitrogen 13, Creatinine 0.7, Estimat Glomerular Filtration Rate , Glucose Level 147H, Hemoglobin A1c 5.9 , Calcium Level 8.4L, Total Bilirubin 0.9, Aspartate Amino Transf (AST/SGOT) 13L , Alanine Aminotransferase (ALT/SGPT) 18, Alkaline Phosphatase 65, Total Protein 5.9L, Albumin 2.5L, Globulin 3.4, Albumin/Globulin Ratio 0.7L, Triglycerides Level 73, Cholesterol Level 112, LDL Cholesterol 49, HDL Cholesterol 49, Cholesterol/HDL Ratio 2.3L Current Medications Medications (Trade) Dose Ordered Sig/[place] Route PRN Reason Start Time Stop Time Status Last Admin Dose Admin Acetaminophen (Tylenol) 650 mg Q4H PRN RECTAL FEVER 05/30/18 12:00 06/29/18 11:59 05/31/18 08:31 Dextrose (Dextrose 50%) 25 ml Q30M PRN IV Hypoglycemia 05/30/18 12:15 06/29/18 12:14 Dextrose (Dextrose 50%) 50 ml Q30M PRN IV Hypoglycemia 05/30/18 12:15 06/29/18 12:14 Dextrose/ Electrolytes 1,000 ml @ 100 mls/hr Q10H IV 05/30/18 09:45 06/29/18 09:44 05/31/18 05:36 Dextrose/ Electrolytes 1,000 ml @ 100 mls/hr Q10H IV 05/30/18 13:07 06/29/18 13:06 05/31/18 08:30 Enoxaparin Sodium (Lovenox) 40 mg DAILY SUBQ 05/31/18 09:00 06/30/18 08:59 05/31/18 08:39 Hydromorphone HCl (Dilaudid) 0.5 mg Q3H PRN IVP Pain Score 1-3 05/30/18 12:00 06/06/18 11:59 Hydromorphone HCl (Dilaudid) 1 mg Q4H PRN IVP For Pain 05/30/18 09:45 06/06/18 09:44 Iopamidol (Isovue-300 100ml) 100 ml NOW PRN INJ Radiology Procedure 05/30/18 06:45 Metoclopramide HCl (Reglan) 10 mg Q6H PRN IVP Nausea & Vomiting 05/30/18 12:00 06/29/18 11:59 Morphine Sulfate (Morphine Sulfate) 2 mg Q3H PRN IVP Moderate Pain (Pain Scale 4-6) 05/30/18 12:15 06/06/18 12:14 Morphine Sulfate (Morphine Sulfate) 4 mg Q3H PRN IVP Severe Pain (Pain Scale 7-10) 05/30/18 12:15 06/06/18 12:14 Ondansetron HCl (Zofran) 4 mg Q6H PRN IVP Nausea & Vomiting 05/30/18 12:15 06/29/18 12:14 05/31/18 08:30 Pantoprazole (Protonix) 40 mg DAILY IVP 05/30/18 12:00 06/29/18 11:59 05/31/18 08:30 Piperacillin Sod/ Tazobactam Sod 3.375 gm/Sodium Chloride 110 ml @ 27.5 mls/hr EVERY 8 HOURS IVPB 05/30/18 11:00 06/04/18 10:59 05/31/18 14:46 Ab Lord MD May 31, 2018 16:46
[2018-05-31 20:00] VITALS: BP 122/57
[2018-06-01] VITALS: BP 133/68
[2018-06-01] MEDS: D5 1/2NS w/KCl 20mEq 1,000 ML IV SCH ×2 (03:06→13:09)
[2018-06-01 04:00] VITALS: BP 131/61
[2018-06-01] MEDS: Piperacillin/Tazobactam 3.375 GM in NS 110 ML IVPB SCH ×3 (06:39→22:04)
[2018-06-01 07:30] LABS: BASOPHILS % (AUTO) 0.4 % (0.0-2.0); EOSINOPHILS % (AUTO) 0.7 % (0.0-3.0); HEMATOCRIT 32.8 % (37.0-47.0); HEMOGLOBIN 11.2 G/DL (12.0-16.0); LYMPHOCYTES % (AUTO) 11.6 % (20.0-45.0); MEAN CORPUSCULAR VOLUME 95 FL (80-99); MONOCYTES % (AUTO) 7.4 % (1.0-10.0); NEUTROPHILS % (AUTO) 79.9 % (45.0-75.0); PLATELET COUNT 201 K/UL (150-450); RED BLOOD COUNT 3.45 M/UL (4.20-5.40); RED CELL DISTRIBUTION WIDTH 11.8 % (11.6-14.8); WHITE BLOOD COUNT 9.4 K/UL (4.8-10.8)
[2018-06-01 07:33] LABS: ANION GAP 8 mmol/L (5-15); BLOOD UREA NITROGEN 5 mg/dL (7-18); CALCIUM 8.1 MG/DL (8.5-10.1); CARBON DIOXIDE 26 MMOL/L (21-32); CHLORIDE 103 MMOL/L (98-107); CREATININE 0.6 MG/DL (0.55-1.30); POTASSIUM 3.6 MMOL/L (3.5-5.1); SODIUM 137 MMOL/L (136-145)
[2018-06-01 08:00] VITALS: BP 143/75
[2018-06-01] MEDS: Pantoprazole Inj IVP SCH (08:43)
[2018-06-01] MEDS: HYDROmorphone 1mg/ml Carpuject IVP PRN ×2 (08:44→22:17)
[2018-06-01] MEDS: Enoxaparin 40mg Inj SUBQ SCH (08:59)
--- NOTE | 2018-06-01 10:34 | General Surgery Progress Note ---
General Surgery-Progress Note Subjective Procedure Performed Attempted lap appy, lysis of adhesions and open appedectomy Symptoms: pain same, passing flatus Objective Last 24 Hour Vital Signs Date Time Temp Pulse Resp B/P (MAP) Pulse Ox O2 Delivery O2 Flow Rate FiO2 06/01/18 09:00 Nasal Cannula 2.0 06/01/18 08:00 97.5 91 24 143/75 (97) 95 06/01/18 04:00 98.0 88 20 131/61 (84) 95 06/01/18 00:00 98.1 85 20 133/68 (89) 93 05/31/18 21:54 Room Air 05/31/18 21:54 94 Room Air 05/31/18 21:00 Nasal Cannula 2.0 05/31/18 20:00 98.8 80 18 122/57 (78) 92 05/31/18 15:56 98.4 78 18 116/56 (76) 95 05/31/18 12:00 98.3 74 18 116/52 (73) 94 I&O Intake and Output 05/31/18 06/01/18 19:00 07:00 Intake Total 1192.5 ml 1410.0 ml Balance 1192.5 ml 1410.0 ml Intake IV Total 1192.5 ml 1410.0 ml # Voids 3 4 Respiratory: clear Abdomen: soft, flat, tenderness, decreased bowel sounds Extremities: no tenderness Laboratory Tests Test 06/01/18 05:25 White Blood Count 9.4 K/UL (4.8-10.8) Red Blood Count 3.45 M/UL (4.20-5.40) L Hemoglobin 11.2 G/DL (12.0-16.0) L Hematocrit 32.8 % (37.0-47.0) L Mean Corpuscular Volume 95 FL (80-99) Mean Corpuscular Hemoglobin 32.5 PG (27.0-31.0) H Mean Corpuscular Hemoglobin Concent 34.2 G/DL (32.0-36.0) Red Cell Distribution Width 11.8 % (11.6-14.8) Platelet Count 201 K/UL (150-450) Mean Platelet Volume 6.1 FL (6.5-10.1) L Neutrophils (%) (Auto) 79.9 % (45.0-75.0) H Lymphocytes (%) (Auto) 11.6 % (20.0-45.0) L Monocytes (%) (Auto) 7.4 % (1.0-10.0) Eosinophils (%) (Auto) 0.7 % (0.0-3.0) Basophils (%) (Auto) 0.4 % (0.0-2.0) Sodium Level 137 MMOL/L (136-145) Potassium Level 3.6 MMOL/L (3.5-5.1) Chloride Level 103 MMOL/L (98-107) Carbon Dioxide Level 26 MMOL/L (21-32) Anion Gap 8 mmol/L (5-15) Blood Urea Nitrogen 5 mg/dL (7-18) L Creatinine 0.6 MG/DL (0.55-1.30) Estimat Glomerular Filtration Rate mL/min (>60) Glucose Level 133 MG/DL (74-106) H Calcium Level 8.1 MG/DL (8.5-10.1) L Assessment Additional Comments S/P Appy Plan Additional Comments continue as before Ana Maria Alves MD Jun 01, 2018 10:34
[2018-06-01 12:00] VITALS: BP_SYST 107; BP_SYST 98; BP_DIAS 57; BP_DIAS 58
--- NOTE | 2018-06-01 13:53 | Pulmonology Progress Note ---
Assessment/Plan Assessment/Plan Pulmonary Progress Note: HISTORY OF PRESENT ILLNESS: The patient is a 73-year-old female with history of hyperlipidemia, who presented with right lower quadrant pain secondary to appendicitis. She is now status post laparoscopic appendectomy by Dr. Alves. Postoperatively, she was hypoxemic. She is still lethargic and coming out of anesthesia. No cough or congestion noted. Per , no antecedent history of lung disease, asthma, or tobacco use. PAST MEDICAL HISTORY: Hyperlipidemia. PAST SURGICAL HISTORY: x2 and now appendectomy. ALLERGIES: No known drug allergies. MEDICATIONS: Prior to admission, medications none. Current medications noted. SOCIAL HISTORY: No tobacco, alcohol, or drug use. . Supportive family. FAMILY HISTORY: Noncontributory. REVIEW OF SYSTEMS: Unobtainable. PHYSICAL EXAMINATION: VITAL SIGNS NOTED GENERAL: Awake HEENT: Normocephalic and atraumatic. Oropharynx is clear with moist mucous membranes. NECK: Supple without lymphadenopathy. CHEST: Clear. HEART: Regular. ABDOMEN: Wounds are dressed. No bowel sounds are appreciated. Mild diffuse tenderness. EXTREMITIES: No cyanosis, clubbing or edema. ANCILLARY DATA: White count 15, hemoglobin 14.4, and platelet count 274. INR 1. Sodium 137, potassium 3.7, chloride 102, bicarbonate 26, BUN 11, creatinine 0.7, glucose 113, calcium 9.2. Total bilirubin 0.9, AST 21, ALT 25, alkaline phosphatase 76, total bilirubin 7.1, albumin 3.3, globulin 3.8. Urinalysis, 2+ protein, 2+ ketones, 4+ urobilinogen, 1+ leukocyte esterase, and moderate mucus. IMAGING: Preoperative chest x-ray was essentially within normal limits. CT of the abdomen and pelvis done, chest cuts reviewed by myself. There is evidence of acute appendicitis, questionable tiny extraluminal gas bubble, concern for microperforation, no periappendiceal abscess , gastric antral wall thickening, mild fatty liver, some posterior atelectasis, hiatal hernia, degenerative changes. ASSESSMENT: The patient is a 73-year-old female, nonsmoker with no history of lung disease, presenting with acute appendicitis, now postop day 0, status post acute appendicitis with mild hypoxemia. I suspect the etiology of her hypoxemia secondary to atelectasis and resolving anesthesia with subsequent hypoventilation. PROBLEM LIST: 1. Mild postoperative hypoxemia. 2. Acute appendicitis status post laparoscopic appendectomy for 05/30/2018. 3. Hyperlipidemia. TREATMENT PLAN: 1. Titrate down FiO2 to keep saturations greater than 92%. 2. Incentive spirometer. 3. Monitor for signs of respiratory infection. 4. Continue antibiotics. 5. The patient is on Lovenox for DVT prophylaxis. 6. Advance diet as tolerated Subjective ROS Limited/Unobtainable: No Allergies: Coded Allergies: No Known Allergies (Unverified , 05/30/18) Objective Last 24 Hour Vital Signs Date Time Temp Pulse Resp B/P (MAP) Pulse Ox O2 Delivery O2 Flow Rate FiO2 06/01/18 12:00 97.9 75 18 107/57 (74) 94 06/01/18 09:00 Nasal Cannula 2.0 06/01/18 08:00 97.5 91 24 143/75 (97) 95 06/01/18 04:00 98.0 88 20 131/61 (84) 95 06/01/18 00:00 98.1 85 20 133/68 (89) 93 05/31/18 21:54 Room Air 05/31/18 21:54 94 Room Air 05/31/18 21:00 Nasal Cannula 2.0 05/31/18 20:00 98.8 80 18 122/57 (78) 92 05/31/18 15:56 98.4 78 18 116/56 (76) 95 Intake and Output 05/31/18 06/01/18 18:59 06:59 Intake Total 1192.5 ml 1410.0 ml Balance 1192.5 ml 1410.0 ml Intake IV Total 1192.5 ml 1410.0 ml # Voids 3 4 Laboratory Tests 06/01/18 05:25: White Blood Count 9.4, Red Blood Count 3.45L, Hemoglobin 11.2L, Hematocrit 32.8L , Mean Corpuscular Volume 95, Mean Corpuscular Hemoglobin 32.5H, Mean Corpuscular Hemoglobin Concent 34.2, Red Cell Distribution Width 11.8, Platelet Count 201, Mean Platelet Volume 6.1L, Neutrophils (%) (Auto) 79.9H, Lymphocytes (%) (Auto) 11.6L, Monocytes (%) (Auto) 7.4, Eosinophils (%) (Auto) 0.7, Basophils (%) (Auto) 0.4, Sodium Level 137, Potassium Level 3.6, Chloride Level 103, Carbon Dioxide Level 26, Anion Gap 8, Blood Urea Nitrogen 5L, Creatinine 0.6, Estimat Glomerular Filtration Rate , Glucose Level 133H, Calcium Level 8.1L Current Medications Medications (Trade) Dose Ordered Sig/[place] Route PRN Reason Start Time Stop Time Status Last Admin Dose Admin Acetaminophen (Tylenol) 650 mg Q4H PRN RECTAL FEVER 05/30/18 12:00 06/29/18 11:59 05/31/18 08:31 Dextrose (Dextrose 50%) 25 ml Q30M PRN IV Hypoglycemia 05/30/18 12:15 06/29/18 12:14 Dextrose (Dextrose 50%) 50 ml Q30M PRN IV Hypoglycemia 05/30/18 12:15 06/29/18 12:14 Dextrose/ Electrolytes 1,000 ml @ 100 mls/hr Q10H IV 05/30/18 13:07 06/29/18 13:06 06/01/18 13:09 Enoxaparin Sodium (Lovenox) 40 mg DAILY SUBQ 05/31/18 09:00 06/30/18 08:59 06/01/18 08:59 Hydromorphone HCl (Dilaudid) 0.5 mg Q3H PRN IVP Pain Score 1-3 05/30/18 12:00 06/06/18 11:59 06/01/18 01:02 Hydromorphone HCl (Dilaudid) 1 mg Q4H PRN IVP For Pain 05/30/18 09:45 06/06/18 09:44 06/01/18 08:44 Iopamidol (Isovue-300 100ml) 100 ml NOW PRN INJ Radiology Procedure 05/30/18 06:45 Metoclopramide HCl (Reglan) 10 mg Q6H PRN IVP Nausea & Vomiting 05/30/18 12:00 06/29/18 11:59 06/01/18 08:43 Morphine Sulfate (Morphine Sulfate) 2 mg Q3H PRN IVP Moderate Pain (Pain Scale 4-6) 05/30/18 12:15 06/06/18 12:14 05/31/18 08:30 Morphine Sulfate (Morphine Sulfate) 4 mg Q3H PRN IVP Severe Pain (Pain Scale 7-10) 05/30/18 12:15 06/06/18 12:14 05/31/18 18:10 Ondansetron HCl (Zofran) 4 mg Q6H PRN IVP Nausea & Vomiting 05/30/18 12:15 06/29/18 12:14 06/01/18 03:00 Pantoprazole (Protonix) 40 mg DAILY IVP 05/30/18 12:00 06/29/18 11:59 06/01/18 08:43 Piperacillin Sod/ Tazobactam Sod 3.375 gm/Sodium Chloride 110 ml @ 27.5 mls/hr EVERY 8 HOURS IVPB 05/30/18 11:00 06/04/18 10:59 06/01/18 13:07 Senna/Docusate Sodium (Tammy-Colace) 1 tab TWICE A DAY ORAL 06/01/18 18:00 07/01/18 17:59 Ab Lord MD Jun 01, 2018 13:53
[2018-06-01] MEDS ORDERED: Zolpidem 5mg tab ORAL PRN (15:30)
[2018-06-01 16:00] VITALS: BP 150/74
--- NOTE | 2018-06-01 16:03 | General Progress Note ---
Assessment/Plan Problem List: (1) Acute appendicitis Assessment & Plan: Status post appendectomy ICD Codes: K35.80 - Unspecified acute appendicitis SNOMED: 20162151 (2) Abdominal pain ICD Codes: R10.9 - Unspecified abdominal pain SNOMED: 60902419 Assessment/Plan DC IVF PRN pain medications IV antibiotics Discussed with pt, and RN Subjective Allergies: Coded Allergies: No Known Allergies (Unverified , 05/30/18) Subjective still with abdominal pain insomnia Objective Last 24 Hour Vital Signs Date Time Temp Pulse Resp B/P (MAP) Pulse Ox O2 Delivery O2 Flow Rate FiO2 06/01/18 12:00 97.9 75 18 107/57 (74) 94 06/01/18 09:00 Nasal Cannula 2.0 06/01/18 08:00 97.5 91 24 143/75 (97) 95 06/01/18 04:00 98.0 88 20 131/61 (84) 95 06/01/18 00:00 98.1 85 20 133/68 (89) 93 05/31/18 21:54 Room Air 05/31/18 21:54 94 Room Air 05/31/18 21:00 Nasal Cannula 2.0 05/31/18 20:00 98.8 80 18 122/57 (78) 92 05/31/18 15:56 98.4 78 18 116/56 (76) 95 Intake and Output 05/31/18 06/01/18 18:59 06:59 Intake Total 1192.5 ml 1410.0 ml Balance 1192.5 ml 1410.0 ml Intake IV Total 1192.5 ml 1410.0 ml # Voids 3 4 Laboratory Tests 06/01/18 05:25: White Blood Count 9.4, Red Blood Count 3.45L, Hemoglobin 11.2L, Hematocrit 32.8L , Mean Corpuscular Volume 95, Mean Corpuscular Hemoglobin 32.5H, Mean Corpuscular Hemoglobin Concent 34.2, Red Cell Distribution Width 11.8, Platelet Count 201, Mean Platelet Volume 6.1L, Neutrophils (%) (Auto) 79.9H, Lymphocytes (%) (Auto) 11.6L, Monocytes (%) (Auto) 7.4, Eosinophils (%) (Auto) 0.7, Basophils (%) (Auto) 0.4, Sodium Level 137, Potassium Level 3.6, Chloride Level 103, Carbon Dioxide Level 26, Anion Gap 8, Blood Urea Nitrogen 5L, Creatinine 0.6, Estimat Glomerular Filtration Rate , Glucose Level 133H, Calcium Level 8.1L Height (Feet): 5 Height (Inches): 0.00 Weight (Pounds): 110 Cardiovascular: normal rate Respiratory/Chest: lungs clear Abdomen: tender Edema: no edema noted Generalized Manuel Gallagher MD Jun 01, 2018 16:03
[2018-06-01] MEDS: Docusate Sod/Senna tab ORAL SCH (17:08)
[2018-06-01 20:00] VITALS: BP 144/72
[2018-06-02] VITALS: BP 106/54
[2018-06-02 04:00] VITALS: BP 122/58
[2018-06-02] MEDS: Piperacillin/Tazobactam 3.375 GM in NS 110 ML IVPB SCH (05:25)
[2018-06-02 07:04] LABS: BASOPHILS % (AUTO) 0.8 % (0.0-2.0); EOSINOPHILS % (AUTO) 2.9 % (0.0-3.0); HEMATOCRIT 33.3 % (37.0-47.0); HEMOGLOBIN 11.4 G/DL (12.0-16.0); LYMPHOCYTES % (AUTO) 16.4 % (20.0-45.0); MEAN CORPUSCULAR VOLUME 94 FL (80-99); MONOCYTES % (AUTO) 10.7 % (1.0-10.0); NEUTROPHILS % (AUTO) 69.2 % (45.0-75.0); PLATELET COUNT 221 K/UL (150-450); RED BLOOD COUNT 3.54 M/UL (4.20-5.40); RED CELL DISTRIBUTION WIDTH 11.9 % (11.6-14.8); WHITE BLOOD COUNT 6.7 K/UL (4.8-10.8)
[2018-06-02 08:00] VITALS: BP 149/70
[2018-06-02] MEDS: Pantoprazole Inj IVP SCH (08:15)
[2018-06-02] MEDS: Docusate Sod/Senna tab ORAL SCH (08:16)
[2018-06-02] MEDS: Enoxaparin 40mg Inj SUBQ SCH (08:26)
[2018-06-02] MEDS: HYDROmorphone 1mg/ml Carpuject IVP PRN (09:25)
--- NOTE | 2018-06-02 12:17 | Pulmonology Progress Note ---
Assessment/Plan Assessment/Plan ASSESSMENT: The patient is a 73-year-old female, nonsmoker with no history of lung disease, presenting with acute appendicitis status post acute appendicitis with mild hypoxemia. I suspect the etiology of her hypoxemia secondary to atelectasis and resolving anesthesia with subsequent hypoventilation. PROBLEM LIST: 1. Mild postoperative hypoxemia. 2. Acute appendicitis status post laparoscopic converted appendectomy for 2018. 3. Hyperlipidemia. TREATMENT PLAN: 1. Optimize pulmonary hygiene/mobilize 2. PRN O2 3. Incentive spirometer. 4. Monitor for signs of respiratory infection. 5. Abx 6. The patient is on Lovenox for DVT prophylaxis. 7. Pain control/supportive care 8. Stable from a pulmonary standpoint for discharge, will sign off and follow peripherally Subjective Allergies: Coded Allergies: No Known Allergies (Unverified , 05/30/18) Subjective AFVSS on RA No cough no SOB no CP Ambulating, pain better Objective Last 24 Hour Vital Signs Date Time Temp Pulse Resp B/P (MAP) Pulse Ox O2 Delivery O2 Flow Rate FiO2 06/02/18 09:00 Nasal Cannula 2.0 06/02/18 08:00 98.1 77 18 149/70 (96) 96 06/02/18 04:00 98.6 78 18 122/58 (79) 95 06/02/18 00:00 98.4 66 18 106/54 (71) 98 06/01/18 21:00 Nasal Cannula 2.0 06/01/18 20:00 93 Room Air 21 06/01/18 20:00 99.5 83 18 144/72 (96) 95 06/01/18 20:00 Room Air 21 06/01/18 16:00 97.9 84 18 150/74 (99) 96 Intake and Output 06/01/18 06/02/18 19:00 07:00 Intake Total 1570.0 ml 322.5 ml Balance 1570.0 ml 322.5 ml Intake Oral 240 ml IV Total 920.0 ml 82.5 ml Other 650 ml # Voids 3 General Appearance: WD/WN, no acute distress HEENT: normocephalic, atraumatic, anicteric, mucous membranes moist Respiratory/Chest: chest wall non-tender, lungs clear, normal breath sounds, no respiratory distress, no accessory muscle use Cardiovascular: normal peripheral pulses, normal rate, regular rhythm Abdomen: normal bowel sounds, soft, non tender, no organomegaly, non distended , no mass Extremities: no cyanosis, no clubbing, no edema Laboratory Tests 06/02/18 06:15: White Blood Count 6.7, Red Blood Count 3.54L, Hemoglobin 11.4L, Hematocrit 33.3L , Mean Corpuscular Volume 94, Mean Corpuscular Hemoglobin 32.1H, Mean Corpuscular Hemoglobin Concent 34.0, Red Cell Distribution Width 11.9, Platelet Count 221, Mean Platelet Volume 6.5, Neutrophils (%) (Auto) 69.2, Lymphocytes (% ) (Auto) 16.4L, Monocytes (%) (Auto) 10.7H, Eosinophils (%) (Auto) 2.9, Basophils (%) (Auto) 0.8 Current Medications Medications (Trade) Dose Ordered Sig/[place] Route PRN Reason Start Time Stop Time Status Last Admin Dose Admin Acetaminophen (Tylenol) 650 mg Q4H PRN RECTAL FEVER 05/30/18 12:00 06/29/18 11:59 05/31/18 08:31 Dextrose (Dextrose 50%) 25 ml Q30M PRN IV Hypoglycemia 05/30/18 12:15 06/29/18 12:14 Dextrose (Dextrose 50%) 50 ml Q30M PRN IV Hypoglycemia 05/30/18 12:15 06/29/18 12:14 Enoxaparin Sodium (Lovenox) 40 mg DAILY SUBQ 05/31/18 09:00 06/30/18 08:59 06/02/18 08:26 Hydromorphone HCl (Dilaudid) 0.5 mg Q3H PRN IVP Pain Score 1-3 05/30/18 12:00 06/06/18 11:59 06/01/18 01:02 Hydromorphone HCl (Dilaudid) 1 mg Q4H PRN IVP For Pain 05/30/18 09:45 06/06/18 09:44 06/02/18 09:25 Iopamidol (Isovue-300 100ml) 100 ml NOW PRN INJ Radiology Procedure 05/30/18 06:45 Metoclopramide HCl (Reglan) 10 mg Q6H PRN IVP Nausea & Vomiting 05/30/18 12:00 06/29/18 11:59 06/01/18 08:43 Morphine Sulfate (Morphine Sulfate) 2 mg Q3H PRN IVP Moderate Pain (Pain Scale 4-6) 05/30/18 12:15 06/06/18 12:14 05/31/18 08:30 Morphine Sulfate (Morphine Sulfate) 4 mg Q3H PRN IVP Severe Pain (Pain Scale 7-10) 05/30/18 12:15 06/06/18 12:14 05/31/18 18:10 Ondansetron HCl (Zofran) 4 mg Q6H PRN IVP Nausea & Vomiting 05/30/18 12:15 06/29/18 12:14 06/01/18 03:00 Pantoprazole (Protonix) 40 mg DAILY IVP 05/30/18 12:00 06/29/18 11:59 06/02/18 08:15 Piperacillin Sod/ Tazobactam Sod 3.375 gm/Sodium Chloride 110 ml @ 27.5 mls/hr EVERY 8 HOURS IVPB 05/30/18 11:00 06/04/18 10:59 06/02/18 05:25 Senna/Docusate Sodium (Tammy-Colace) 1 tab TWICE A DAY ORAL 06/01/18 18:00 07/01/18 17:59 06/02/18 08:16 Zolpidem Tartrate (Ambien) 5 mg HSPRN PRN ORAL Insomnia 06/01/18 15:30 06/08/18 15:29 06/01/18 22:04 Eben Santos MD Jun 02, 2018 12:17
[2018-06-02] MEDS ORDERED: CIPROFLOXACIN500 MG PO (12:31)
--- NOTE | 2018-06-02 12:32 | General Progress Note ---
Assessment/Plan Problem List: (1) Acute appendicitis Assessment & Plan: Status post appendectomy ICD Codes: K35.80 - Unspecified acute appendicitis SNOMED: 51208212 (2) Abdominal pain ICD Codes: R10.9 - Unspecified abdominal pain SNOMED: 67336898 Assessment/Plan start Cipro 500 mg bid for 5 days DC today Subjective Allergies: Coded Allergies: No Known Allergies (Unverified , 05/30/18) Subjective feels ok Objective Last 24 Hour Vital Signs Date Time Temp Pulse Resp B/P (MAP) Pulse Ox O2 Delivery O2 Flow Rate FiO2 06/02/18 09:00 Nasal Cannula 2.0 06/02/18 08:00 98.1 77 18 149/70 (96) 96 06/02/18 04:00 98.6 78 18 122/58 (79) 95 06/02/18 00:00 98.4 66 18 106/54 (71) 98 06/01/18 21:00 Nasal Cannula 2.0 06/01/18 20:00 93 Room Air 21 06/01/18 20:00 99.5 83 18 144/72 (96) 95 06/01/18 20:00 Room Air 21 06/01/18 16:00 97.9 84 18 150/74 (99) 96 Intake and Output 06/01/18 06/02/18 19:00 07:00 Intake Total 1570.0 ml 322.5 ml Balance 1570.0 ml 322.5 ml Intake Oral 240 ml IV Total 920.0 ml 82.5 ml Other 650 ml # Voids 3 Laboratory Tests 06/02/18 06:15: White Blood Count 6.7, Red Blood Count 3.54L, Hemoglobin 11.4L, Hematocrit 33.3L , Mean Corpuscular Volume 94, Mean Corpuscular Hemoglobin 32.1H, Mean Corpuscular Hemoglobin Concent 34.0, Red Cell Distribution Width 11.9, Platelet Count 221, Mean Platelet Volume 6.5, Neutrophils (%) (Auto) 69.2, Lymphocytes (% ) (Auto) 16.4L, Monocytes (%) (Auto) 10.7H, Eosinophils (%) (Auto) 2.9, Basophils (%) (Auto) 0.8 Height (Feet): 5 Height (Inches): 0.00 Weight (Pounds): 110 Cardiovascular: normal rate Respiratory/Chest: lungs clear Abdomen: soft Manuel Gallagher MD Jun 02, 2018 12:32
--- NOTE | 2018-06-02 19:31 | Cardiology Report ---
APPROVED REPORT EKG Measurement Heart [id number] Normal sinus rhythm Normal ECG
--- NOTE | 2018-06-04 11:15 | Discharge Summary ---
Discharge Summary Discharge Summary _ DATE OF ADMISSION: 05/30/2018 DATE OF DISCHARGE: 06/02/2018 DISCHARGED BY: Dr. Gallagher REASON FOR ADMISSION: 73 years old female with past medical history of hyperlipidemia, remote history of x2, presented with right lower quadrant abdominal pain with gradual onset, slowly progressing, constant , moderate to severe in intensity and sharp. Patient denied radiation of pain. Patient denied fever and chills. Patient denied vomiting and urinary symptoms. Upon evaluation vital signs revealed mild elevation in blood pressure 157/73. Laboratory workup revealed leukocytosis WBC 15 , stable hemoglobin and hematocrit. Stable electrolytes and renal parameters Glucose 113. Albumin 3.3. Stable LFT and lipase. Urinalysis revealed +2 protein, +1 leukocyte esterase, no pyuria, no bacteria. CT of the abdomen and pelvis revealed acute appendicitis with possible microperforation, no abscess. Chest x-ray demonstrated no acute cardiopulmonary process. Patient was admitted for surgical intervention. CONSULTANTS: pulmonary Dr. Santos surgery [facility] COURSE: Patient seen by surgeon in the emergency department. Patient subsequently undergone attempted laparoscopic appendectomy , converted to open appendectomy with lysis of adhesion. Patient was initially kept n.p.o., on IV fluids. Patient experienced mild postoperative hypoxemia. Pulmonology consult was requested. Supplemental oxygen was on board as needed to keep pulse oximetry above 92%. Patient was continue on broad-spectrum antibiotics. Pain management was addressed, and pain was controlled. Supportive care provided. DVT prophylaxis provided. Patient was mobilized out of bed as tolerated. Patient was taught how to use incentive spirometer. Incentive spirometry was encouraged every hour x10 while in the bed. Bowel regimen instituted. GI prophylaxis provided. As bowel function returned patient slowly started on diet and was advanced as tolerated. Wound care provided. Patient clinically stabilized and was ready for discharge home. Complete course of antibiotic with oral Cipro at home. FINAL DIAGNOSES: Acute appendicitis Status post laparoscopic converted to open appendectomy with lysis of adhesion Hyperlipidemia Mild postoperative hypoxemia-resolved DISCHARGE MEDICATIONS: See Medication Reconciliation list. DISCHARGE INSTRUCTIONS: Patient was discharged home . Follow up with primary care provider in one week. Follow-up with surgeon as outpatient as advised by surgeon. I have been assigned to dictate discharge summary for this account. I was not involved in the patient's management. Danii Zaragoza NP Jun 04, 2018 11:15
== END 2018-06-02 13:19 | disposition home or self-care (01) | DRG 342 ==
LOC: EDBD 06:24 → EMR 07:05 → EDBEDREQ 07:44 → 4E 07:46 → EDBEDREQ 08:26
PROC: 0DJD4ZZ Inspection of Lower Intestinal Tract, Percutaneous Endoscopic Approach (ICD-10-PCS; principal; 2018-05-30 11:00)
PROC: 0DTJ0ZZ Resection of Appendix, Open Approach (ICD-10-PCS; principal; 2018-05-30 11:00)
DX: K35.80 Unspecified acute appendicitis (principal); J98.11 Atelectasis; E78.5 Hyperlipidemia, unspecified; R09.02 Hypoxemia; I10 Essential (primary) hypertension
CPT/HCPCS: 36415; 71045; 74177; 80048; 80053; 80061; 81003; 83036; 83690; 85007; 85025; 85610; 85730; 86850; 86900; 86901; 93005; 94003; 94150; 94760; 96361; 96365; 96375; 99285; C9399; J2250; J2405; J2710; J2765